=== PATIENT | male | born 1985 | race Caucasian/White ===

== ENCOUNTER → 2019-08-30 | Outpatient (CLI) | payer OTHER ==
--- NOTE | 2019-08-30 15:03 | Diagnostic Imaging Report ---
Examination: CT Face without Contrast History:Facial injury with nasal contusion Comparison studies: None Technique: Axial images were obtained through the maxillofacial region. Coronal and sagittal reconstructions obtained from the axial data. Dose modulation, iterative reconstruction, and/or weight based adjustment of the mA/kV was utilized to reduce the radiation dose to as low as reasonably achievable. Intravenous contrast: None Findings: Soft tissues: No abnormalities. Bones: No fractures or bony abnormalities. Orbits: Globes: Intact Extra or intraconal abnormalities: None. Paranasal sinuses: Clear. Nasal cavity: Patent. No septal deviation. IMPRESSION: No acute facial abnormality, specifically, no acute fracture. Signed by: Dr. Paula Luther M.D. on 08/30/2019 3:00 PM
== END ==
LOC: CT 13:39
PROVIDERS: ATTEND Family Medicine
DX: S00.33XA Contusion of nose, initial encounter (principal); S07.0XXA Crushing injury of face, initial encounter
CPT/HCPCS: 70486